=== PATIENT | male | born 1950 | race Caucasian/White ===

== ENCOUNTER 2022-04-12 21:38 | Emergency (ER) | payer OTHER ==
[~2022-04-12] VITALS: Ht 180.3 cm; Wt 81.6 kg
[2022-04-12] MEDS ORDERED: ATOR20TA PO (22:03)
--- NOTE | 2022-04-12 22:07 | NUR ---
pt bib ra from home pt fell at home c/o left hip pain.
[2022-04-12 22:24] LABS: HEMATOCRIT 44.3 % (36.7-47.1); MEAN CORPUSCULAR HEMOGLOBIN 32.6 uug (23.8-33.4); MEAN CORPUSCULAR VOLUME 94.3 fL (73.0-96.2); PLATELET COUNT (AUTO) 167 K/uL (152-348)
[2022-04-12] MEDS ORDERED: HYDROMORPHONE 1 MG/1 ML DISP.SYRIN IV ONE ×2 (22:30→23:00)
[2022-04-12 22:32] LABS: CARBON DIOXIDE 28 mmol/L (21-32); CHLORIDE 103 mmol/L (98-107); GLUCOSE 106 mg/dL (74-106); POTASSIUM 3.5 mmol/L (3.5-5.1); UREA NITROGEN, BLOOD 27 mg/dL (7-18)
[2022-04-12] MEDS ORDERED: HYDROMORPHONE 1 MG/1 ML DISP.SYRIN ONE ×2 (22:32→22:52)
[2022-04-12 22:42] LABS: ALANINE AMINOTRANSFERASE 11 U/L (16-63); ALKALINE PHOSPHATASE 69 U/L (50-136); ASPARTATE AMINOTRANSFERASE 20 U/L (15-37); BILIRUBIN,DIRECT 0.2 mg/dL (0.0-0.2); BILIRUBIN,TOTAL 0.7 mg/dL (0.2-1.0)
[2022-04-12 22:43] LABS: *BILIRUBIN,URIN NEGATIVE (NEGATIVE); *BLOOD, URINE NEGATIVE (NEGATIVE); *CLARITY,URINE CLEAR (CLEAR); *COLOR,URINE YELLOW (YELLOW); *KETONES,URINE NEGATIVE (NEGATIVE); *UROBILINOGEN,URINE 0.2 E.U./dl (NORMAL); LEUKOCYTE ESTERASE ,URINE NEGATIVE (NEGATIVE); NITRITE, URINE NEGATIVE (NEGATIVE); UGLUCOSE NEGATIVE (NEGATIVE)
--- NOTE | 2022-04-12 23:11 | NUR ---
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 Ramesh Rosales and he would like me to call and speak to the laundry housekeeper to try to get him transferred.
--- NOTE | 2022-04-12 23:14 | NUR ---
updated Dr. Rasheed and Ahsan Charge nurse that pt wants to go to [facility] I will call greenhouse assistant at [facility] for bed situation.
--- NOTE | 2022-04-12 23:41 | NUR ---
called [facility] at [phone] they will transport pt to [facility] before 1am is eta to [facility]. I notified the pt and his .
--- NOTE | 2022-04-12 23:45 | NUR ---
spoke with Rea at [facility] notifed her that ambulance transport will be here to [facility] at 0100 she says to call when they arrive for report.
--- NOTE | 2022-04-13 00:56 | NUR ---
[facility] here Robert suarez and Jalen barrios 260 [facility] Charge nurse at [facility].
[2022-04-13] MEDS ORDERED: HYDROMORPHONE 1 MG/1 ML DISP.SYRIN IV ONE (01:00)
[2022-04-13] MEDS ORDERED: HYDROMORPHONE 1 MG/1 ML DISP.SYRIN ONE (01:01)
--- NOTE | 2022-04-13 01:08 | NUR ---
called to Rea and informed her that pt received an additional 0.5 mg of dilaudid prior to transport.
== END 2022-04-13 01:15 | disposition short-term general hospital (02) ==
LOC: ER 21:38
DX: S72.002A Fracture of unspecified part of neck of left femur, initial encounter for closed fracture (principal); W19.XXXA Unspecified fall, initial encounter; Y92.019 Unspecified place in single-family (private) house as the place of occurrence of the external cause; Z96.652 Presence of left artificial knee joint; Z20.822 Contact with and (suspected) exposure to COVID-19; R94.31 Abnormal electrocardiogram [ECG] [EKG]
CPT/HCPCS: 36415; 73502; 73564; 80048; 80076; 81003; 84484; 85025; 85730; 86850; 86900; 86901; 87426; 93005; 96374; 96376; 99285; J1170 ×3; A4663